=== PATIENT | female | born 1990 | race Caucasian/White ===

== ENCOUNTER 2017-01-28 17:06 | Observation (INO) | payer OTHER ==
[~2017-01-28] VITALS: Ht 152.4 cm; Wt 86.7 kg
[~2017-01-28 17:06] MED LIST: AZITHROMYCIN250 MG PO; BACTRIM,SEPT1 TABLET PO; BENTYL10 MG PO; CLARITIN-D 21 TABLET PO; HYDROCODONE-IB1 EACH PO; KEFLEX500 MG PO; LEVOTHROID50 MCG PO; LEVOTHYROXINE25 MCG PO; Levothroid,Synthroid PO; MUCUS ER600 MG PO; NOHOMEMEDS; OMEPRAZOLE10 M1 PO; OMEPRAZOLE20 M2 PO; POLYTRIM EYE DR10 ML LEFT EYE; PriLOSEC PO; ROBITUSSIN AC,T10 ML PO; TORADOL10 MG PO; Vicodin,Norco 5/325 PO; XANAX0.5 MG PO; ZANTAC150 M1 PO; ZITHROMAX Z-PA250 MG PO; ZOFRAN ODT4 MG PO; ZOFRAN4 MG PO
[2017-01-28 18:16] LABS: HEMATOCRIT 42.5 % (36.0-46.0); MCH 31.2 PG (29.0-34.0); MCV 97.5 FL (83-99); PLATELET COUNT 118 K/uL (156-360); RBC DIS.WIDTH-SD 47.9 % (39-53); RED BLOOD COUNT 4.36 M/uL (3.80-5.20); WHITE BLOOD COUNT 5.6 K/uL (4.1-10.2)
[2017-01-28 18:42] LABS: CHLORIDE 100 mEq/L (99-109); SODIUM 138 mEq/L (136-147)
[2017-01-28 18:44] LABS: GLUCOSE 108 mg/dL (70-99)
[2017-01-28 18:45] LABS: ANION GAP 12 MEQ/L (2-14)
[2017-01-28 18:46] LABS: TOTAL BILIRUBIN 0.3 mg/dL (0.0-1.0)
[2017-01-28 18:47] LABS: ALKALINE PHOSPHATASE 33 IU/L (3-129)
[2017-01-28 18:48] LABS: GFR ESTIMATE (CALCULATED) 57 mL/min/
[2017-01-28 18:49] LABS: UREA NITROGEN (BUN) 8 mg/dL (9-23)
[2017-01-28 18:56] LABS: INFLUENZA A VIRAL ANTIGEN NEGATIVE; INFLUENZA B VIRAL ANTIGEN POSITIVE
[2017-01-28 19:00] LABS: QUANTITATIVE HCG < 4.0 MIU/ML
[2017-01-28] MEDS ORDERED: ZOFRAN ODT4 MG PO (19:30)
[2017-01-28] MEDS ORDERED: VENTOLIN HFA18 GM IH (19:36)
[2017-01-28] MEDS ORDERED: OMEPRAZOLE20 MG PO (22:34)
[2017-01-29 00:56] VITALS: BP 130/89
[2017-01-29 02:18] LABS: ADD MIUA? NO; BILIRUBIN NEGATIVE; BLOOD NEGATIVE; COLOR COLORLESS ((YELLOW)); GLUCOSE (STRIP) 50; KETONES NEGATIVE; LEUKOCYTES NEGATIVE; NITRITE NEGATIVE; PROTEIN (STRIP) NEGATIVE; SPECIFIC GRAVITY 1.004 (1.000-1.030); UROBILINOGEN 0.2 MG/DL (0.2-1.0)
[2017-01-29 05:10] VITALS: BP 91/56
[2017-01-29 06:13] LABS: HEMATOCRIT 38.7 % (36.0-46.0); MCH 29.8 PG (29.0-34.0); MCHC 30.2 G/DL (30.0-36.0); MCV 98.5 FL (83-99); MEAN PLAT.VOLUME 12.6 uM^3 (9.5-12.4); PLATELET COUNT 138 K/uL (156-360); RBC DIS.WIDTH-CV 14.3 % (11.8-14.6); RBC DIS.WIDTH-SD 51.8 % (39-53); RED BLOOD COUNT 3.93 M/uL (3.80-5.20); WHITE BLOOD COUNT 5.5 K/uL (4.1-10.2)
[2017-01-29 06:30] LABS: ALKALINE PHOSPHATASE 22 IU/L (3-129); ANION GAP 9 MEQ/L (2-14); CHLORIDE 106 MEQ/L (99-109); GFR ESTIMATE (CALCULATED) > 59 mL/min/; GLUCOSE 112 mg/dL (70-99); POTASSIUM 4.2 MEQ/L (3.7-5.4); SAMPLE HEMOLYSIS CHECK 0; SAMPLE ICTERIC CHECK 0; SAMPLE LIPEMIA CHECK 0; SODIUM 140 MEQ/L (136-147); TOTAL BILIRUBIN 0.3 MG/DL (0.0-1.0); UREA NITROGEN (BUN) 10 mg/dL (9-23)
[2017-01-29 07:58] VITALS: BP 124/78
[2017-01-29 12:11] VITALS: BP 101/74
[2017-01-29 16:00] VITALS: BP 112/64
[2017-01-29 20:05] VITALS: BP 126/85
[2017-01-30] VITALS: BP 125/84
[2017-01-30 04:34] VITALS: BP 120/80
[2017-01-30] MEDS ORDERED: SORE THROAT LO1 EAC3 MM (07:51)
[2017-01-30] MEDS ORDERED: TYLENOL REGULA325 MG PO (07:51)
[2017-01-30] MEDS ORDERED: OSELTAMIVIR PHO75 MG PO (07:51)
[2017-01-30] MEDS ORDERED: FLONASE16 G1 BOTH NARES (07:51)
== END 2017-01-30 11:07 | disposition home or self-care (01) ==
LOC: EME 17:06 → 5WEST 23:43 → EDOF 23:43 → 5WEST 01-29 00:39
PROVIDERS: Internal Medicine; Nurse Practitioner Family
DX: J10.1 Influenza due to other identified influenza virus with other respiratory manifestations (principal); E86.0 Dehydration; R00.0 Tachycardia, unspecified; R51 Headache; E89.0 Postprocedural hypothyroidism; F70 Mild intellectual disabilities; I10 Essential (primary) hypertension; K21.9 Gastro-esophageal reflux disease without esophagitis; F32.9 Major depressive disorder, single episode, unspecified
CPT/HCPCS: 71020; 80053; 81003; 84702; 85027; 87502; 99281; 99285; G0378; J1100; J1200; J1885; J2405; J7030; S0028